=== PATIENT | female | born 1980 | race Caucasian/White ===

== ENCOUNTER 2020-09-28 16:32 | Outpatient (CLI) | payer OTHER, SELFPAY ==
--- NOTE | ~2020-09-28 | US_ITS ---
EXAMINATION: US OB /maternal detail DATE: 09/28/2020 17:27 INDICATION: Second trimester anatomic survey TECHNIQUE: Real-time ultrasound of the pelvis was performed. COMPARISON: None. FINDINGS: There is a single living fetus in vertex presentation. The placenta is anterior. heart rate is 144 beats per minute (bpm). cardiac activity and movement are noted. The amniotic fluid index is normal. The following anatomy was identified as normal: 4 chamber heart 3 vessel cord cord insertion kidneys urinary bladder stomach spine diaphragm ventricles cisterna magna cerebellum The following biometric data were obtained: Biparietal diameter (BPD): 5.0 cm; head circumference (HC): 18.1 cm; abdominal circumference (AC): 15 .7 cm; femur length (FL): 3.0 cm. These measurements are concordant. Estimated weight is 346 g +/- 51 g, which correlates with the 25th percentile when 02/10/2021 is used as estimated date of delivery. As single measurements, these parameters are each equal to the following estimated gestational ages w ith ranges of +/- 2 standard deviations: BPD: 21 weeks 2 days +/- 1 weeks 5 days. HC: 20 weeks 4 days +/- 1 weeks 3 days. AC: 20 weeks 6 days +/- 2 weeks 0 days. FL: 19 weeks 4 days +/- 1 weeks 6 days. estimated gestational age based solely on measurements from this exam is 20 weeks 4 days +/- 1 weeks 3 days. IMPRESSION: 1. Single living fetus in vertex presentation. 2. Estimated weight is 346 g +/- 51 g, which correlates with the 25th percentile when 02/10/2021 is used as estimated date of delivery. Reviewed, dictated and finalized at location B. IMPRESSION: 1. Single living fetus in vertex presentation. 2. Estimated weight is 346 g +/- 51 g, which correlates with the 25th per centile when 02/10/2021 is used as estimated date of delivery.
== END 2020-09-28 16:33 | disposition home or self-care (01) ==
LOC: ANHIMG 16:35
PROVIDERS: PCP Obstetrics & Gynecology; Visit Provider Obstetrics & Gynecology
DX: Z36.9 Encounter for antenatal screening, unspecified (principal); Z3A.20 20 weeks gestation of pregnancy
CPT/HCPCS: 76805

== ENCOUNTER 2021-02-15 12:00 | Outpatient (RCR) | payer OTHER, SELFPAY ==
[2021-02-01 11:07] LABS: Glucose Point of Care 80 mg/dl (65-105)
[2021-02-01 11:38] VITALS: BP 109/86; PULSE 104
--- NOTE | ~2021-02-15 | US_ITS ---
EXAMINATION: US OB follow up DATE: 02/15/2021 13:15 INDICATION: Third trimester post dates TECHNIQUE: Real-time ultrasound of the pelvis was performed. The interpreting radiologist was not pre sent for the study. COMPARISON: 09/28/2020 FINDINGS: There is a single living fetus in vertex presentation. The placenta is anterior. card iac activity and movement are noted. heart rate is 161 beats per minute (bpm). The amniot ic fluid index is 13.9 cm which is normal. The following biometric data were obtained: Biparietal diameter (BPD): 9.8 cm; head circumference (HC): 35.1 cm; abdominal circumference (AC): 36 .7 cm; femur length (FL): 7.8 cm. These measurements are concordant. Estimated weight is 4178 g +/- 619 g, which correlates with the 79th percentile when 02/10/2021 is used as estimated date of delivery. As single measurements, these parameters are each equal to the following estimated gestational ages w ith ranges of +/- 2 standard deviations: BPD: 40 weeks 2 days ( OOR - 3 weeks 1 days). HC: 40 weeks 6 days ( OOR - 2 weeks 5 days). AC: 40 weeks 5 days ( OOR - 3 weeks 0 days). FL: 40 weeks 2 days ( OOR - 3 weeks 1 days). estimated gestational age based solely on measurements from this exam is 40 weeks 4 days +/- 2 weeks 6 days. IMPRESSION: 1. Single living fetus in vertex presentation. 2. Estimated weight is 4178 g +/- 619 g, which correlates with the 79th percentile when 02/11/20 21 is used as estimated date of delivery. Reviewed, dictated and finalized at location A. IMPRESSION: 1. Single living fetus in vertex presentation. 2. Estimated weight is 4178 g +/- 619 g, which correlates with the 79th p ercentile when 02/10/2021 is used as estimated date of delivery.
[2021-02-15 13:19] VITALS: BP 107/66; PULSE 85
== END 2021-03-21 07:40 | disposition home or self-care (01) ==
LOC: ANHOBOP 12:00
PROVIDERS: Visit Provider Obstetrics & Gynecology
DX: O28.0 Abnormal hematological finding on antenatal screening of mother (principal); R73.9 Hyperglycemia, unspecified; Z3A.38 38 weeks gestation of pregnancy; O48.0 Post-term pregnancy; Z3A.40 40 weeks gestation of pregnancy
CPT/HCPCS: 59025; 76816; 82948

== ENCOUNTER 2021-02-18 05:45 | Inpatient (IN) | payer OTHER, SELFPAY ==
[2021-02-18] VITALS (117 sets, daily range): BP systolic 84–139; BP diastolic 41–82; PULSE 66–148; RESP 18; TEMP 36.6–36.9; O2SAT 83–100; BMI 24.8
--- NOTE | 2021-02-18 05:45 | LDADM ---
This patient, Yadi Lawson, was admitted to Labor/Delivery/Recovery 104 on 02/18/21 at 05:45. Plans for labor, pain management and were discussed with patient. Patient/family oriented to hospital policies and general routines including ID bracelet, bed and alarms, visiting hours, pain management, procedures, bathroom and other care routines, personal items, smoking policy, room service/diet and guest tray routines, security routines, and visiting hours. Patient/Family are encouraged to report perceived risks to care and to ask questions if they do not understand what they are told or what they should do. See OBIX for further documentation.
[2021-02-18] MEDS: OXYTOCIN 30 UNITS/NS 500 ML 30 UNITS/500 ML BAG IV CONT (06:59)
[2021-02-18] MEDS: LACTATED RINGERS 1,000 ML 125 ML IV CONT ×2 (07:00→10:37)
[2021-02-18 07:08] LABS: Basophils Absolute Auto 0.1 K/mm3 (0.0-0.1); Basophils Percent Auto 0.5 % (0.2-1.2); Eosinophils Absolute Auto 0.1 K/mm3 (0-0.3); Eosinophils Percent Auto 0.7 % (0-4.4); Hematocrit 31.2 % (37.0-47.0); Hemoglobin 10.7 g/dL (12.0-15.0); Immature Granulocyte Absolute 0.19 K/mm3 (0.00-0.031); Immature Granulocyte Percent A 1.6 % (0-0.5); Lymphocytes Absolute Auto 1.68 K/mm3 (0.9-3.2); Lymphocytes Percent Auto 14.1 % (18.3-44.2); Mean Corpuscular HGB Conc 34.3 g/dl (32-36); Mean Corpuscular Hemoglobin 33.9 pg (26-34); Mean Corpuscular Volume 98.7 fl (80-100); Mean Platelet Volume 10.1 fl (7.4-10.4); Monocytes Absolute Auto 0.9 K/mm3 (0.1-0.6); Monocytes Percent Auto 7.4 % (2.6-8.5); Neutrophils Percent Auto 75.7 % (45.5-73.1); Platelet Count Result 129 k/mm3 (150-375); Red Blood Count 3.16 M/mm3 (4.2-5.4); Red Cell Distribution Width 17.2 % (11.5-14.5); White Blood Count 11.9 K/mm3 (4.5-10.0)
[2021-02-18 07:13] LABS: Glucose Point of Care 96 mg/dl (65-105)
[2021-02-18 08:05] LABS: HIV 1/2 Ab P24 Ag Result Negative (Negative)
--- NOTE | 2021-02-18 08:53 | WPDOBADMIT ---
Obstetrics - Admit Note Admission Note: record reviewed. Additions to the history and/or subsequent changes in the physical findings follow. 40 y/o at 41 1/7 weeks here for scheduled induction of labor. GBS neg. essentially unremarkable, except that she had refused a GCT out of concern for unhealthy ingredients (she read about it on the internet.). She got a glucometer and took several accuchecks. Some were very high (600s), but accuchecks done on L&D during surveillance have all been normal. No diagnosis of gestational diabetes. AVSS NST reactive TOCO: contractions irregularly ABD soft, nontender, gravid, vertex EXT nontender Cervix 3-4/50/-2. Vertex. AROM with meconium-stained fluid. A: IUP at 41 1/7 weeks here for induction of labor. P: Oxytocin. Anticipate .
--- NOTE | 2021-02-18 09:14 | WPDANESEPP ---
Anes - Eval Pre Procedure Date/Time: 02/18/21 09:14 Pre Op Diagnosis: IOL Patient Data Age: 40 Gender: F Height: 1.7 m Weight: 72 kg Last Vital Signs Pulse 75 02/18/21 09:00 BP 89/46 L 02/18/21 09:00 Pulse Ox 100 02/18/21 06:41 Allergies Allergy/AdvReac Type Severity Reaction Status Date / Time Sulfa (Sulfonamide Allergy Unknown Difficulty Verified 02/18/21 08:22 Antibiotics) Breathing Home Medications Medication Instructions Recorded Confirmed Type Vitamin 1 tablet PO DAILY 02/18/21 02/18/21 History Laboratory Tests 02/18/21 02/18/21 02/18/21 07:01 07:01 07:01 WBC 11.9 K/mm3 H K/mm3 (4.5-10.0) RBC 3.16 M/mm3 L M/mm3 (4.2-5.4) Hgb 10.7 g/dL L g/dL (12.0-15.0) Hct 31.2 % L % (37.0-47.0) MCV 98.7 fl fl (80-100) MCH 33.9 pg pg (26-34) MCHC 34.3 g/dl g/dl (32-36) RDW 17.2 % H % (11.5-14.5) Plt Count 129 k/mm3 L k/mm3 (150-375) MPV 10.1 fl fl (7.4-10.4) Immature Gran % (Auto) 1.6 % H % (0-0.5) Neut % (Auto) 75.7 % H % (45.5-73.1) Lymph % (Auto) 14.1 % L % (18.3-44.2) Bledsoe % (Auto) 7.4 % % (2.6-8.5) Eos % (Auto) 0.7 % % (0-4.4) Baso % (Auto) 0.5 % % (0.2-1.2) Lymph # (Auto) 1.68 K/mm3 K/mm3 (0.9-3.2) Bledsoe # (Auto) 0.9 K/mm3 H K/mm3 (0.1-0.6) Eos # (Auto) 0.1 K/mm3 K/mm3 (0-0.3) Baso # (Auto) 0.1 K/mm3 K/mm3 (0.0-0.1) Abs Immat Gran (auto) 0.19 K/mm3 H K/mm3 (0.00-0.031) Absolute Neuts (auto) 9.0 K/mm3 H K/mm3 (1.3-6.7) Absolute Nucleated RBC 0.0 K/mm3 K/mm3 (0.0-0.012) Nucleated RBC % 0.0 % % (0.0-0.2) POC Capillary Glucose RPR Pending HIV 1&2 Ab/P24 Ag 4thGn Negative (Negative) Blood Type Antibody Screen 02/18/21 02/18/21 07:02 07:05 WBC RBC Hgb Hct MCV MCH MCHC RDW Plt Count MPV Immature Gran % (Auto) Neut % (Auto) Lymph % (Auto) Bledsoe % (Auto) Eos % (Auto) Baso % (Auto) Lymph # (Auto) Bledsoe # (Auto) Eos # (Auto) Baso # (Auto) Abs Immat Gran (auto) Absolute Neuts (auto) Absolute Nucleated RBC Nucleated RBC % POC Capillary Glucose 96 mg/dl mg/dl (65-105) RPR HIV 1&2 Ab/P24 Ag 4thGn Blood Type O Positive Antibody Screen Negative Patient hx anesthesia problems: none Family hx anesthesia problems: none [facility] Family History Family History Father Family history of cardiovascular disease Pre-diabetes Hypertension Grandparent Family history of cardiovascular disease Social History Social History Smoking status: Never smoker Smoking end date: 06/18/05 Alcohol intake: current Substance use: never Spiritual care concerns: No Exam Day of Procedure 02/18/21 09:14 Patient weight: normal Heart: regular rate and rhythm Lungs: normal air movement Airway: Mallampati scale class II Neurological: alert and oriented
[2021-02-18 09:47] LABS: Rapid Plasma Reagin Non-Reactive (NonReactive)
--- NOTE | 2021-02-18 13:27 | PM.OBPNLAB ---
Pain Control Date/time seen: 02/18/21 13:27 Comments: Comfortable with epidural Pelvic Exam Dilation (cm): 6 Effacement (%): 80 station: -1 Contractions Contraction frequency: 3 Contraction pattern: Regular Status status: Category l Assessment and Plan Comments: Continue labor.
--- NOTE | 2021-02-18 15:38 | PM.OBPRVD ---
OB - Delivery Note Procedure Delivery date: 02/18/21 Procedure: Induction of labor Induction method: AROM and per pitocin protocol Delivery monitor: external FHT, external uterine and internal uterine Route of delivery: Laceration Description: None Specimen: Yes (cord blood) Quantitative Blood Loss (ml): 220 Anesthesia type: Epidural Disposition: PACU Complications: None Narrative: 40 y/o at 41 1/7 weeks gestation who presented to the hospital for induction of labor. Oxytocin was administered intravenously. Amniotomy was performed with return of clear fluid. She received an epidural for pain control. Her labor progressed and her cervix dilated completely. She pushed with good effort and delivered the infant's head to the perineum, followed by the body. The nose and mouth were bulb suctioned. After a delay, the cord was clamped and cut. The was handed off the field. Cord blood was collected. The placenta delivered spontaneously and was grossly normal in appearance. The usual 3 vessel cord was noted. There were no lacerations. Excellent hemostasis resulted as did excellent reapproximation of the normal anatomy. Needle and instrument counts were correct. The patient was taken to recovery room in stable condition. The went to the nursery in stable condition. I was present and scrubbed for the entire delivery. [place] Baby Date of : 02/18/21 Time of : 15:23 Weeks of gestation at delivery: 41 gender: Female Weight (pounds): 8 Weight (ounces): 6 presentation: vertex position: Left Occiput Anterior Placenta delivery description: Spontaneous and Normal Configuration cord vessel description: 3 Vessels and Delayed Cord Clamping score one minute: 9 score five minutes: 9
--- NOTE | 2021-02-18 15:42 | PM.OBDSVD ---
DS: Admitting Diagnosis Admitting Diagnosis IUP at 41 1/7 weeks Favorable cervix DS: Discharge Diagnosis Discharge Diagnosis (1) (normal spontaneous vaginal delivery): Code(s): O80 - Encounter for full-term uncomplicated delivery Status: Acute OB - DS: Summary OB Procedures : None OB Procedures Intrapartum: Spontaneous Vag Delivery OB Procedures: : None DS: Data Data Completed and Pending Labs on day of discharge: Labs from last 24 hours 02/18/21 02/18/21 02/18/21 07:05 07:02 07:01 WBC RBC Hgb Hct MCV MCH MCHC RDW Plt Count MPV Immature Gran % (Auto) Neut % (Auto) Lymph % (Auto) Sherman % (Auto) Eos % (Auto) Baso % (Auto) Lymph # (Auto) Sherman # (Auto) Eos # (Auto) Baso # (Auto) Abs Immat Gran (auto) Absolute Neuts (auto) Absolute Nucleated RBC Nucleated RBC % POC Capillary Glucose 96 RPR HIV 1&2 Ab/P24 Ag 4thGn Negative Blood Type O Positive Antibody Screen Negative 02/18/21 02/18/21 07:01 07:01 WBC 11.9 H RBC 3.16 L Hgb 10.7 L Hct 31.2 L MCV 98.7 MCH 33.9 MCHC 34.3 RDW 17.2 H Plt Count 129 L MPV 10.1 Immature Gran % (Auto) 1.6 H Neut % (Auto) 75.7 H Lymph % (Auto) 14.1 L Sherman % (Auto) 7.4 Eos % (Auto) 0.7 Baso % (Auto) 0.5 Lymph # (Auto) 1.68 Sherman # (Auto) 0.9 H Eos # (Auto) 0.1 Baso # (Auto) 0.1 Abs Immat Gran (auto) 0.19 H Absolute Neuts (auto) 9.0 H Absolute Nucleated RBC 0.0 Nucleated RBC % 0.0 POC Capillary Glucose RPR Non-reactive HIV 1&2 Ab/P24 Ag 4thGn Blood Type Antibody Screen Discharge Plan Discharge Attending physician on discharge: Akbar Plummer Discharging Clinician: Guido Perera Patient Disposition: Home, Self-Care Activity: pelvic rest Diet: regular Discharge Instructions: Education: Mom and Baby Guide Given to: Mother Follow-Up: Call your delivering provider's office for an appointment to be seen in: 6 Weeks Mom and baby should come to the [facility] for the follow-up appointment. Appointment Date/Time: February 22, 2021 at 10:00 am What to expect at your follow-up visit: Blood Pressure Check Physical Assessment Call [phone] if you are unable to keep your appointment time. BREAST CARE: * Wear a snug supportive bra. * For engorgement discomfort: Breast Feeding: * Apply warm moist washcloths * Express milk as needed to relieve engorgement * Wear loose clothing * For sore nipples: * Identify correct latch-on * Apply warm moist washcloths before and after nursing * Air dry nipples after nursing * May apply Lansinoh cream to nipples EPISIOTOMY/PERINEAL CARE: * Until bleeding stops, use your tex bottle after urinating * Change your pad frequently throughout the day * You may take sitz baths several times a day (fill your bathtub with warm water and soak for 20 minutes.) Do NOT bathe in the water * No tub baths until seen by your physician - You may shower ACTIVITY: * Rest as much as possible. * Do not exercise or lift anything heavier than your baby (such as laundry or other children.) * Avoid stairs or driving as much as possible. * Do not put anything into the vagina. No douching, tampons, or sexual activity until seen by physician. NOTIFY PHYSICIAN IF YOU HAVE ANY QUESTIONS OR IF ANY OF THE FOLLOWING SYMPTOMS OCCUR: * If your perineum becomes red, swollen, or more painful than what you have experienced in the hospital. * If your vaginal bleeding becomes foul smelling. * If your vaginal bleeding becomes more heavy than a period or if your bleeding changes from pink to bright red. However, you may pass an occasional walnut-sized clot once or twice for the first week . * If you experience a sharp, shooting pain in you
[2021-02-18] MEDS: OXYTOCIN 30 UNITS/NS 500 ML 30 UNITS/500 ML BAG 125 UNITS IV CONT (16:09)
[2021-02-18] MEDS: WITCH HAZEL 40 PADS 1 PAD TOPICAL (19:11)
[2021-02-18] MEDS: IBUPROFEN 600 MG TABLET PO (19:11)
[2021-02-18] MEDS: BENZOCAINE 20% AER SPR (*SP) 56 GM CAN 1 SPRAY TOPICAL (19:11)
[2021-02-19 04:00] VITALS: BP 94/49; PULSE 86; RESP 20; TEMP 36.3; O2SAT 100
[2021-02-19] MEDS: IBUPROFEN 600 MG TABLET PO ×3 (04:01→19:03)
[2021-02-19 05:23] LABS: Hematocrit 29.9 % (37.0-47.0); Hemoglobin 10.1 g/dL (12.0-15.0)
[2021-02-19 09:00] VITALS: BP 99/53; PULSE 78; RESP 18; TEMP 36.2; O2SAT 100
--- NOTE | 2021-02-19 09:04 | PM.OBDSVD ---
DS: Admitting Diagnosis Admitting Diagnosis intrauterine at 41w OB - DS: Summary OB Procedures : None OB Procedures Intrapartum: Spontaneous Vag Delivery OB Procedures: : None Status at Discharge Functional status at discharge: independent ambulation Overall status at discharge: patient is back to baseline Time Spent with Patient Time attestation: Total time spent providing and/or coordinating discharge services: Time spent: Less than 30 minutes Exam Const: General: comfortable and no acute distress Resp: Effort & Inspection: normal respiratory effort Auscultation: clear to auscultation bilaterally Cardio: Rate: regular rate GI: GI Palp: Yes Soft to palpation Auscultation: normal bowel sounds Other: Fundus firm below umbilicus Psych: Appearance: grossly normal Mental Status: mental status grossly normal Affect: normal affect DS: Data Data Completed and Pending Labs on day of discharge: Labs from last 24 hours 02/19/21 02/18/21 04:09 07:01 Hgb 10.1 L Hct 29.9 L RPR Non-reactive Discharge Plan Discharge Attending physician on discharge: Akbar Plummer Discharging Clinician: Guido Perera Patient Disposition: Home, Self-Care Activity: pelvic rest Diet: regular Discharge Instructions: Call or return if temperature above 100.4? F, increased abdominal pain, increased vaginal bleeding or any new problems. Stand Alone Forms: General Discharge Information Follow-up/Referrals: Akbar Plummer MD [Physician] - 6 Weeks Discharge Medications: New ibuprofen 600 mg tablet 600 mg PO Q6H PRN (Reason: cramps) Qty: 30 RF: 0 polysaccharide iron complex 150 mg iron Capsule 150 mg PO BIDWM Qty: 60 RF: 0 acetaminophen [Mapap (acetaminophen)] 325 mg Tablet 650 mg PO Q6H PRN (Reason: Mild Pain (1-3) Or Headache) Qty: 30 RF: 0 ibuprofen 600 mg Tablet 600 mg PO Q6H PRN (Reason: Cramping) Qty: 30 RF: 0 Continued Vitamin 1 tablet PO DAILY RF: 0 Date of admission: 02/18/21 05:45 Primary Care Provider: PHYSICIAN,TERRITORY SALES EXECUTIVE Admitting Provider: Akbar Plummer Attending physician on admission: Akbar Plummer Condition: Stable
[2021-02-19] MEDS: MULTIVIT/MIN/PREN/FOL AC/IRON TABLET 1 TAB PO (10:59)
[2021-02-19] MEDS: DOCUSATE SODIUM 100 MG CAPSULE PO (11:00)
[2021-02-22 09:47] VITALS: BP 120/81; PULSE 92; RESP 16; TEMP 37.3; O2SAT 99
== END 2021-02-19 19:25 | disposition home or self-care (01) | DRG 807 ==
LOC: ANHLDR 15:43 → ANHOB2 02-19 16:54 → ANHLDR 02-23 07:01 → ANHOB2 02-23 07:01
PROVIDERS: Admitting Provider Obstetrics & Gynecology; Visit Provider Student in an Organized Health Care Education/Training Program
DX: O77.0 Labor and delivery complicated by meconium in amniotic fluid (principal); Z37.0 Single live birth; O76 Abnormality in fetal heart rate and rhythm complicating labor and delivery; Z3A.41 41 weeks gestation of pregnancy
CPT/HCPCS: 36415; 82948; 85014; 85018; 85025; 86592; 86703; 86850; 86900; 86901; A9270; G0432; J2590; J2795; J7120

== ENCOUNTER 2025-01-13 19:30 | Emergency (ER) | payer OTHER, SELFPAY ==
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
[2025-01-13 19:41] VITALS: BP 108/73; PULSE 86; RESP 16; TEMP 37.1; O2SAT 98
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
== END 2025-01-13 20:26 | disposition home or self-care (01) ==
PROVIDERS: Emergency Provider Nurse Practitioner
DX: S20.212A Contusion of left front wall of thorax, initial encounter (principal); W50.0XXA Accidental hit or strike by another person, initial encounter; Z87.891 Personal history of nicotine dependence
CPT/HCPCS: 71101; 71120; 99213; G0463